=== PATIENT | female | born 1990 | race Caucasian/White ===

== ENCOUNTER 2018-09-02 03:24 | Inpatient (IN) | payer OTHER ==
[~2018-09-02] VITALS: Ht 162.6 cm; Wt 2.7 kg
[2018-09-02] MEDS ORDERED: PRENATAL TABLE1 EAC1 PO (03:26)
== END 2018-09-04 16:05 | disposition home or self-care (01) | DRG 788 ==
LOC: OBS/DEL 03:24 → LDR 06:39 → OBS/DEL 08:10 → LDR 11:43 → OB/GYN 11:43 → O/R 14:07 → OB/GYN 15:50
PROVIDERS: ADMIT Obstetrics & Gynecology
PROC: 4A1HXCZ Monitoring of Products of Conception, Cardiac Rate, External Approach (ICD-10-PCS; 2018-09-02)
PROC: 10D00Z1 Extraction of Products of Conception, Low, Open Approach (ICD-10-PCS; principal; 2018-09-02 13:00)
DX: O82 Encounter for cesarean delivery without indication (principal); Z3A.39 39 weeks gestation of pregnancy; Z37.0 Single live birth; Z22.330 Carrier of Group B streptococcus